=== PATIENT | female | born 1990 | race Caucasian/White ===

== ENCOUNTER 2019-08-13 13:15 | Emergency (ER) | payer SELFPAY ==
[~2019-08-13] VITALS: Ht 162.6 cm; Wt 59.9 kg
[2019-08-13 13:45] VITALS: BP_SYST 107
--- NOTE | 2019-08-13 13:50 | NUR ---
Patient triaged and placed in waiting room. VSS and patient appears in no acute distress at this time. Awaiting available bed, and MD notified of need for MSE.
--- NOTE | 2019-08-13 13:51 | NUR ---
Patient came from home for evaluation. Patient is complaining of flu like symptoms with loss of smell and taste.
--- NOTE | 2019-08-13 14:00 | NUR ---
ER in triage examining patient.
[2019-08-13 14:32] VITALS: BP_SYST 107
--- NOTE | 2019-08-13 14:32 | NUR ---
Patient given written and verbal discharge instructions and verbalizes understanding. ER MD discussed with patient the results and treatment provided. Patient in stable condition. ID arm band removed. Rx of naproxen given. Patient educated on pain management and to follow up with PMD. Pain Scale 0/10. Opportunity for questions provided and answered. Medication side effect fact sheet provided.
[2019-08-14] MEDS ORDERED: TUBERCULIN,PURIF.PROT.DERIV. 0.1 ML SYR ID ONE (03:40)
== END 2019-08-13 14:32 | disposition home or self-care (01) ==
LOC: SED 13:15
DX: U07.1 COVID-19 (principal); R05 Cough
CPT/HCPCS: 71045; 99284; C9803; U0003; 86580